=== PATIENT | male | born 1980 | race Caucasian/White ===

== ENCOUNTER 2018-07-21 13:06 | Emergency (ER) | payer OTHER ==
[~2018-07-21] VITALS: Ht 175.3 cm; Wt 129.3 kg
[~2018-07-21 13:06] MED LIST: CALCIUM500 MG PO; MAGNESIUM27 MG PO; MULTI VITAMIN1 EACH PO
[2018-07-21] MEDS ORDERED: LEXAPRO 10 MG T10 M2 PO (13:15)
[2018-07-21] MEDS ORDERED: COZAAR 50 MG TA50 M1 PO (13:16)
[2018-07-21] MEDS ORDERED: NABUMETONE 750750 M1 PO (14:25)
[2018-07-21] MEDS ORDERED: NORCO 5-325 TA1 EACH PO (14:25)
[2018-07-21 15:20] VITALS: BP 132/87
== END 2018-07-21 15:23 | disposition home or self-care (01) ==
LOC: M.ERS 13:06
DX: S62.395A Other fracture of fourth metacarpal bone, left hand, initial encounter for closed fracture (principal); S63.592A Other specified sprain of left wrist, initial encounter; S50.02XA Contusion of left elbow, initial encounter; S80.02XA Contusion of left knee, initial encounter; I10 Essential (primary) hypertension; Z86.2 Personal history of diseases of the blood and blood-forming organs and certain disorders involving the immune mechanism; V89.2XXA Person injured in unspecified motor-vehicle accident, traffic, initial encounter; Y93.89 Activity, other specified; Y92.89 Other specified places as the place of occurrence of the external cause; Y99.8 Other external cause status